=== PATIENT | female | born 1975 | race Caucasian/White ===

== ENCOUNTER 2024-04-11 12:10 | Outpatient (CLI) | payer OTHER | END 2024-04-11 12:11 | disposition home or self-care (01) | LOC: CSHMAMMO 12:10 | PROVIDERS: ATTEND Family Medicine | DX: Z12.31 Encounter for screening mammogram for malignant neoplasm of breast (principal) | CPT/HCPCS: 77063; 77067 ==

== ENCOUNTER 2025-04-17 09:52 | Outpatient (CLI) | payer OTHER | END 2025-04-17 09:53 | disposition home or self-care (01) | LOC: CSHMAMMO 09:52 | PROVIDERS: ATTEND Family Medicine | DX: Z12.31 Encounter for screening mammogram for malignant neoplasm of breast (principal) | CPT/HCPCS: 77063; 77067 ==